=== PATIENT | male | born 1965 | race Caucasian/White ===

== ENCOUNTER 2017-11-06 09:23 | Emergency (ER) | payer OTHER ==
[~2017-11-06] VITALS: Ht 175.3 cm; Wt 81.2 kg
[2017-11-06] MEDS ORDERED: NOVOLOG 10100 UNITS/ SC (09:56)
[2017-11-06] MEDS ORDERED: LIDODERM 5% P1 PATCH TD (10:22)
[2017-11-06] MEDS ORDERED: PERCOCET 5/31 TABLET PO (10:22)
[2017-11-06] MEDS ORDERED: FLEXERIL10 MG PO (10:22)
[2017-11-06 10:27] VITALS: BP 133/85
== END 2017-11-06 11:00 | disposition home or self-care (01) ==
LOC: EME 09:23
DX: S40.012A Contusion of left shoulder, initial encounter (principal); S60.222A Contusion of left hand, initial encounter; S20.212A Contusion of left front wall of thorax, initial encounter; V24.4XXA Motorcycle driver injured in collision with heavy transport vehicle or bus in traffic accident, initial encounter
CPT/HCPCS: 71100; 73030; 73130; 99281; 99285